=== PATIENT | male | born 1965 | race American Indian/Alaskan Native ===

== ENCOUNTER 2018-03-08 10:03 | Day surgery (SDC) | payer BC ==
[2018-03-08 10:53] VITALS: BMI 31.1
[2018-03-08] MEDS ORDERED: Propofol 10 mg/ml Inj (20 ML) ONE ×3 (13:12→13:31)
[2018-03-08] MEDS ORDERED: Midazolam 2 MG/2 ML VIAL ONE (13:12)
[2018-03-08 13:57] VITALS: TEMP 96.8
[2018-03-08 14:06] VITALS: RESP 16; O2SAT 100
[2018-03-08 15:15] VITALS: BP 113/67; PULSE 77
== END 2018-03-08 15:05 | disposition home or self-care (01) ==
LOC: C.ENDO 10:03
PROVIDERS: ATTEND Internal Medicine Gastroenterology
DX: Z12.11 Encounter for screening for malignant neoplasm of colon (principal); R12 Heartburn; K20.9 Esophagitis, unspecified; K29.70 Gastritis, unspecified, without bleeding; D12.4 Benign neoplasm of descending colon; D12.3 Benign neoplasm of transverse colon; K57.30 Diverticulosis of large intestine without perforation or abscess without bleeding
CPT/HCPCS: 43239; 45385; 88305; 88312; 88313; 88342; J2001; J2250; J2704